=== PATIENT | male | born 1970 | race Caucasian/White ===

== ENCOUNTER 2019-05-27 04:52 | Emergency (ER) | payer BC, SELFPAY ==
[2019-05-27] VITALS (19 sets, daily range): BP systolic 101–207; BP diastolic 50–123; PULSE 42–83; RESP 13–23; TEMP 36.7; O2SAT 94–99
--- NOTE | 2019-05-27 04:57 | DI.CT_ITS ---
EXAM: CT THORAX ABD/PEL CTA CLINICAL HISTORY: back/chest pain, ?dissection. TECHNIQUE: The examination was carried out according to the usual protocol with intravenous contrast enhancement. COMPARISON: No exams were available for comparison FINDINGS: The pulmonary arteries are unremarkable. The aorta is normal. The major visceral branches are unrema rkable. There is no evidence of a pulmonary infiltrate, pneumothorax or pleural effusion. The heart is not enlarged. There is no pericardial effusion. There is no evidence of pulmonary emboli. The liver is unremarkable. The gallbladder is intact. No gallstones are seen. There is no evidence of biliary dilatation. The pancreas is unremarkable. The spleen, kidneys and adrenals are unremarkabl e. There is no evidence of bowel obstruction, the appendix is normal. The bladder is suboptimally d istended. No gross abnormality is apparent. The reproductive organs as visualized are unremarkable. There is no evidence of a hernia. Aside from minimal degenerative changes, the bony structures are u nremarkable. IMPRESSION: No evidence of an acute abnormality, specifically the aorta is intact with no aneurysm or evidence of dissection seen.
--- NOTE | 2019-05-27 04:58 | ED.GENADUL_ITS ---
Discharge Plan Disposition Patient Disposition: [facility] Condition: Critical Discharge Details Chief Complaint: Chest Pain Clinical Impression: ST elevation (STEMI) myocardial infarction Primary Care Provider: Edilberto Swain ED Provider: Mitchell Elliott Home Meds and New Rx's Prescriptions: No Action fluocinonide 60 GM ointment 60 gm Topical BID Qty: 1 RF: 4 Medical Decision Making 48 yo male who denies chronic medical problems though doesn't see a provider regularly, denies smoking or drug use and drinks occasionally, comes in with mid to upper back pain radiating to the chest that woke him up from sleep about an hour or so ago. HE arrives with diaphoresis otherwise HD stable. States he went to bed feeling well and had no recent fevers, chills, abdominal pain, vomit and has no prior history of heart disease. He has no reproducible chest or back pain on exam. Given his diaphoresis, with back pain radiating to the chest will obtain ecg, troponin and CTA to eval for possible dissection. HE denies ivdu and no fevers and pain started acutely and has no neuro deficits so doubt entities such as sea, cauda equina pt's ecg showing concerning st elevation in II, III, avf, and he still states his pain is pain in the upper to mid back that has some tearing component, and he is noted to be hypertensive. I feel dissection needs to be evlauated for given high clinical supicion, going to hold on antiplatelets, anticoagulation and thrombolytics at this time until CTA is done CTA on my read is negative. I ordered asa, plavix and heparin infusion as well as nitro infusion given his htn. He states he feels the same, still has diaphoresis. I spoke with [facility] [place] awaiting cardiology to call back. TNK ordered as well given negative for dissection. He had no contraindications to the lytics and BP at the time it was given was 160/90 Spoke with cardiology who agree with lytics and transfer to them as a stemi. EAMON is not flying so will go by ground. HIs BP has now dropped to 108/60 so nitro infusion stopped at this time Differential Diagnosis Differential Diagnosis: acs, dissection, kidney stone, pancreatitis Imaging Data Radiologic Study: Attestation: I personally reviewed and interpreted this imaging study as follows: Imaging: CT Scan Radiologist's impression: no acute findings Lab Data Lab results reviewed: Yes I reviewed the patient's lab results. ECG Data Attestation: I personally reviewed and interpreted this ECG (s) as follows: Prior ECG tracings: not available for review Interpretation: 1mm st elevation in II, III, aVF, rate of 65, sinus rhythm, pr 190 2nd ekg shows sinus rhythm, rate of 85, pr 222, qtc 428, increased st elevation in inferior leads with reciprocal st depressions in aVL HPI General Mode of arrival: ambulatory . Date/Time Provider Initiated Documentation: 05/27/19 04:53 . Limitations to Documentation: no limitations . Information obtained by: patient . History of Present Illness 48 year old M presents to the emergency department with the chief complaint of back pain, described as moderate, with intensity rated at 5. Quality is described as stabbing and aching, and is localized to the back. Patient reports radiation to (chest). Patient started experiencing this hour(s) (1) and it has been constant. No relieving factors improve symptom(s), No exacerbating factors reported . Patient did receive the following treatments prior to arrival, none Related Data Home Medications Medication Instructions Recorded Confirmed fluocinonide 60 gm TOPICAL BID #1 tube 07/23/16 05/27/19 Allergies Allergy/AdvReac Type Severity Reaction Status Date / Time No Known Allergies Allergy Unverified 05/27/19 04:57 General Stated Complaint: Chest Pain THEODORE: 2 Review of Systems Review of Systems ROS Unobtainable: All systems reviewed & are unremarkable except as noted in HPI and below Constitutional Constitutional: Denies chills, Denies fever(s) and Denies weakness Cardiovascular Cardiovascular: Denies chest pain and Denies dyspnea Respiratory Respiratory: Denies cough and Denies dyspnea Gastrointestinal Gastrointestinal: Denies abdominal pain, Denies nausea and Denies vomiting Musculoskeletal Musculoskeletal: Denies joint swelling Neurologic Neurologic: Denies weakness PFSH Family History Mother No problems noted. Father No problems noted. Sister No problems noted. Brother No problems noted. Grandfather Neoplasm Grandfather Stroke Grandmother No problems noted. Grandmother No problems noted. Social History Smoking/Tobacco Use Status: Never Alcohol Intake: current Alcohol Intake frequency: holidays/special occasions only Drug use: Never Substance use type: does not use Do you feel safe at home: Yes Do you feel safe in your relationship?: Yes Exam Const General: diaphoretic Orientation: alert HENMT Head: normal to inspection Ears: external ears normal General nose exam: external nose normal Mouth: moist mucous membranes Eyes General: appearance normal, both eyes and all related structures Neck Neck: normal visual inspection Resp Effort & Inspection: normal respiratory effort and able to speak in complete sentences Cardio Rate: regular rate Back/Spine/Pelvis Back: no CVA tenderness, No erythema and No warmth Skin General skin exam: no rashes or lesions noted Neuro General: alert and oriented x3 Extrem General: normal to inspection Psych Mental Status: mental status grossly normal Course Vital Signs Vital signs: Vital Signs Temperature 36.7 C 05/27/19 04:55 Pulse 70 05/27/19 04:55 Respiratory Rate 18 05/27/19 04:55 Pulse Oximetry 97 05/27/19 04:55 Temperature 36.7 C 05/27/19 04:55 Temperature Source Skin 05/27/19 04:55 Pulse 70 05/27/19 04:55 Respiratory Rate 18 05/27/19 04:55 Blood Pressure Position Sitting 05/27/19 04:55 Pulse Oximetry 97 05/27/19 04:55 Oxygen Delivery Method Room Air 05/27/19 04:55 Oxygen Flow Rate 0 05/27/19 04:55 Pain Level 6 05/27/19 04:55 Critical Care Time Critical Care Time Critical Care Time: Yes Total Critical Care Time: 60 (minutes) Attestation: time spent reviewing labs, administering thrombolytics, frequent reassessments in a patient with STEMI and potential to deteriorate at any time
[2019-05-27 05:19] LABS: Abs Immature Grans 0.02 k/cumm (0.0-0.09); Absolute Basophil Count 0.01 k/cumm (0.0-0.2); Absolute Eosinophil Count 0.14 k/cumm (0.0-0.7); Absolute Lymphocyte Count 2.54 k/cumm (1.2-3.4); Absolute Monocyte Count 0.56 k/cumm (0.11-0.7); Absolute Neutrophil Count 3.15 k/cumm (1.2-6.7); Basophils % 0.2; Eosinophils % 2.2; HCT 45.8 % (40.0-50.0); HGB 15.7 g/dL (13.5-17.5); Immature Grans % 0.3; Lymphocytes % 39.6; Mean Corp. HGB Concentration 34.3 g/dL (32.0-36.0); Mean Corpuscular Hemoglobin 29.6 pg (27.0-33.0); Mean Corpuscular Volume 86.3 fL (80-95); Mean Platelet Volume 8.9 fL (8.0-11.0); Monocytes % 8.7; Platelet Count 251 x1000/uL (130-400); RBC 5.31 m/cumm (4.50-6.00); RBC Distribution Width 12.8 % (11.8-14.1); White Blood Cell Count 6.42 k/cumm (4.4-10.8)
[2019-05-27] MEDS: Omnipaque 350 MG/ML 100 ML BTL IJ (05:25)
[2019-05-27] MEDS: Clopidogrel 300 MG TAB PO (05:31)
[2019-05-27] MEDS: Aspirin 81 MG CHEW 324 MG CH (05:31)
[2019-05-27 05:41] LABS: Lipase 153 U/L (73-393); Magnesium 2.1 mg/dL (1.8-2.4)
--- NOTE | 2019-05-27 05:41 | DI.VRAD_ITS ---
PROCEDURE INFORMATION: Exam: CT Angiography Chest With Contrast Exam date and time: 05/27/2019 4:58 AM Clinical history: 48 years old, male; Type not specified; Other: Chest/back; Patient HX: Back/chest pain; PT diaphoretic; PT states pain began about 1 hr prior to er; Additional info: R/O dissection TECHNIQUE: Imaging protocol: Computed tomographic angiography of the chest with intravenous contrast. 3D rendering: MIP reconstructed images were created and reviewed. COMPARISON: No relevant prior studies available. FINDINGS: Pulmonary arteries: Unremarkable. No evidence of pulmonary emboli. Aorta: Unremarkable. No aortic aneurysm. No aortic dissection. Lungs: Unremarkable. No consolidation. No masses. No suspicious nodules. Pleural space: Unremarkable. No pneumothorax. No pleural effusion. Heart: Unremarkable. No pericardial effusion. No obvious heart strain. Lymph nodes: Unremarkable. No enlarged lymph nodes. Bones/joints: Unremarkable. No acute fracture. Soft tissues: Unremarkable. IMPRESSION: No acute findings. PROCEDURE INFORMATION: Exam: CT Angiography Abdomen and Pelvis With Contrast Exam date and time: 05/27/2019 4:58 AM Clinical history: 48 years old, male; Type not specified; Other: Chest/back; Patient HX: Back/chest pain; PT diaphoretic; PT states pain began about 1 hr prior to er; Additional info: R/O dissection TECHNIQUE: Imaging protocol: Computed tomographic angiography of the abdomen and pelvis with intravenous contrast material. 3D rendering: MIP reconstructed images were created and reviewed. COMPARISON: No relevant prior studies available. FINDINGS: VASCULATURE: Aorta: No aortic aneurysm. No aortic dissection. Celiac trunk and mesenteric arteries: No occlusion or significant stenosis. Renal arteries: No occlusion or significant stenosis. Right iliac arteries: No occlusion or significant stenosis. Left iliac arteries: No occlusion or significant stenosis. ABDOMEN: Liver: No mass. Gallbladder and bile ducts: Unremarkable. No calcified stones. No ductal dilation. Pancreas: Unremarkable. No mass. No ductal dilation. Spleen: Unremarkable. No splenomegaly. Adrenals: Unremarkable. No mass. Kidneys and ureters: Unremarkable. No solid mass. No hydronephrosis. Stomach and bowel: Unremarkable. No obstruction. No mucosal thickening. Appendix: No evidence of appendicitis. PELVIS: Bladder: Unremarkable. No mass. Reproductive: Unremarkable as visualized. ABDOMEN and PELVIS: Intraperitoneal space: Unremarkable. No free air. No significant fluid collection. Bones/joints: No acute fracture. No dislocation. Soft tissues: Unremarkable. Lymph nodes: Unremarkable. No enlarged lymph nodes. IMPRESSION: Unremarkable CTA abdomen pelvis. Dictated and Authenticated by: Ej Sánchez MD. Ordering:THUAN Medrano MD
[2019-05-27 05:43] LABS: BUN 21 mg/dL (7-18); Glucose 133 mg/dL (70-100); Troponin I < 0.05 ng/mL (0.00-0.06)
[2019-05-27 05:44] LABS: ALT 47 U/L (16-63); AST 25 U/L (15-37); Albumin 4.1 g/dL (3.4-5.0); Alkaline Phosphatase 57 U/L (46-116); Anion Gap 8.8 mmol/L (3-11); Bilirubin, Total 0.4 mg/dL (0.2-1.0); CO2 28.2 mmol/L (21.0-32.0); Chloride 105 mmol/L (98-107); Potassium 3.9 mmol/L (3.5-5.1); Sodium 142 mmol/L (136-145); Total Protein 7.6 g/dL (6.4-8.2)
[2019-05-27] MEDS: Ondansetron 4 MG/2 ML VIAL IVP (06:00)
[2019-05-27] MEDS: fentaNYL 100 MCG/2 ML VIAL IVP (06:01)
[2019-05-27] MEDS: Tenecteplase 50 MG KIT IVP (06:01)
[2019-05-27 06:02] LABS: PTT Activated 23.3 sec (21.0-31.4); Prothrombin Time 9.9 sec (9.3-11.0)
--- NOTE | 2019-05-27 06:36 | NUR.NOTE ---
05/27/19 0547 nitro drip stopped due to low bp see vital sign flow sheet 05/27/19 0624 nitro drip restarted at 5ml/hr per Dr Elliott Nursing Note:
[2019-05-27 06:38] LABS: Bilirubin Negative (Negative); Blood Trace-intact (Negative); Clarity Clear (Clear); Glucose Negative (Negative); Ketones Negative (Negative); Leukocyte Esterase Negative (Negative); Nitrite Negative (Negative); Urobilinogen 0.2 EU/dL (Up TO 0.2)
[2019-05-27 06:49] LABS: Bacteria Rare HPF (Negative); Crystals Negative HPF (Negative); Epithelial Cells Negative HPF (Negative); RBC 0-2 (0-2); WBC 0-2 HPF (0-5)
[2019-05-27 06:50] LABS: C & S Indicated? No; Casts Negative LPF (Negative); Mucus Trace (Negative)
== END 2019-05-27 06:44 | disposition short-term general hospital (02) ==
PROVIDERS: Emergency Provider Emergency Medicine; PCP Family Medicine
DX: I21.29 ST elevation (STEMI) myocardial infarction involving other sites (principal)
CPT/HCPCS: 36415; 74177; 80053; 83690; 93005; 96365; 96368; 96375; 99291; 81003; 81015; 83735; 84484; 85025; 85610; 85730; 93010; J2405; J3010; J3101; J3490

== ENCOUNTER 2019-07-04 11:39 | Outpatient (RCR) | payer BC, SELFPAY | END 2019-07-05 23:59 | disposition home or self-care (01) | LOC: CR 11:39 | PROVIDERS: Family Provider Family Medicine; PCP Family Medicine; Visit Provider Family Medicine | DX: I25.2 Old myocardial infarction (principal); Z95.5 Presence of coronary angioplasty implant and graft; Z51.89 Encounter for other specified aftercare | CPT/HCPCS: S9472 ==

== ENCOUNTER 2019-07-23 09:10 | Outpatient (CLI) | payer BC, SELFPAY | END 2019-07-23 09:30 | PROVIDERS: PCP Family Medicine; Visit Provider Internal Medicine Cardiovascular Disease | DX: I25.10 Atherosclerotic heart disease of native coronary artery without angina pectoris (principal) | CPT/HCPCS: 93005; 93010 ==

== ENCOUNTER 2019-08-01 11:39 | Outpatient (RCR) | payer BC, SELFPAY | END 2019-08-04 23:59 | disposition home or self-care (01) | LOC: CR 11:39 | PROVIDERS: Family Provider Family Medicine; PCP Family Medicine; Visit Provider Family Medicine | DX: I25.2 Old myocardial infarction (principal); Z95.5 Presence of coronary angioplasty implant and graft; Z51.89 Encounter for other specified aftercare | CPT/HCPCS: S9472 ==

== ENCOUNTER 2019-09-03 10:47 | Outpatient (RCR) | payer BC, SELFPAY | END 2019-09-04 23:59 | disposition home or self-care (01) | LOC: CR 10:47 | PROVIDERS: Family Provider Family Medicine; PCP Family Medicine; Visit Provider Family Medicine | DX: I25.2 Old myocardial infarction (principal); Z95.5 Presence of coronary angioplasty implant and graft; Z51.89 Encounter for other specified aftercare | CPT/HCPCS: S9472 ==

== ENCOUNTER 2019-09-12 08:00 | Outpatient (RCR) | payer BC, SELFPAY | END 2019-10-05 23:59 | disposition home or self-care (01) | LOC: CR 08:00 | PROVIDERS: Family Provider Family Medicine; PCP Family Medicine; Visit Provider Family Medicine | DX: I25.2 Old myocardial infarction (principal); Z95.5 Presence of coronary angioplasty implant and graft; Z51.89 Encounter for other specified aftercare | CPT/HCPCS: S9472 ==

== ENCOUNTER 2019-10-11 00:17 | Outpatient (CLI) | payer BC, SELFPAY ==
--- NOTE | 2019-10-11 08:44 | ETT_ITS ---
APPROVED REPORT Exam: Exercise Treadmill Patient Location: Out-Patient Room/Bed: Stress Nurse: Janny Kaur RN BMI: 33.46 Baseline Rhythm: Sinus Rhythm Indications: Evaluate for arrhythmia with maximum exertion, H/O STEMI, OLD MS. Medical History Medical History: CAD s/p MS, CAD s/p stent, HTN, Hyperlipidemia Cardiac Medications: Metoprolol, Lisinopril, Atrovastatin, Aspirin, Allergies: No known drug allergies Cardiac Risk Factors: HTN, Hyperlipidemia Previous Cardiac Procedures: Myocardial infarction, PCI Exercise History: Physically active Lung Sounds: Clear to auscultation Heart Sounds: Regular Stress Test Details Test: Exercise stress testing was performed using a Christian protocol. Rest Stress HR Resting HR Supine: 68 bpm Max Heart Rate (APMHR): 172 bpm Resting HR Standin bpm Target HR (85% APMHR): 146 bpm Max HR Achieved: 169 bpm % of APMHR: 98 HR response to stress: Normal HR response to stress BP Resting BP Supine: 122/80 mmHg Resting BP Standin/80 mmHg Max BP: 192/80 mmHg Recovery BP: 140/90 mmHg BP response to stress: Normal blood pressure response to stress. Comment: Blood pressure slow to return to pre-treadmill exercise baseline ECG Resting ECG: Sinus Rhythm Stress ECG: Sinus Tachycardia ST Change: For acute T waves noted in V1 through V5 Lead(s): V1, V2, V3, V4, V5 Stage: 4 Arrhythmia: None Recovery ECG: Sinus Rhythm Recovery ST Change: Normal Recovery Arrhythmia: None Clinical Reason for Termination: Fatigue Stress Symptoms: General Fatigue Exercise duration: 12 min01 sec Highest Stage Reached: Stage 4: 4.2 mph at 16% grade. Exercise capacity: 13.48 METs Functional Capacity: Above average capacity Scale: Active Angina Score: None Stress ECG Conclusion 1. Patient exercised for 12 minutes (13 METS). 2. Exercise was stopped due to fatigue. 3. His maximal heart rate was 169 (98% of maximal predicted heart rate) and maximal blood pressure wa s 192/80. 4. During maximal exercise the patient developed hyperacute T waves in the anterior leads. He had no significant symptomology. 5. EKG is concerning for possible ischemia especially given the patient's recent LAD stenting. Would suggest further work-up with a stress test involving imaging. Protocol Used: Christian Protocol Stress Test Summary STAGE Time (mins) Speed (mph) Grade (%) HR BP SYMPTOMS METS Supine 68 122/80 Standing 75 124/80 1 3 1.7 10 109 144/80 4.6 2 6 2.5 12 117 160/78 7 3 9 3.4 14 141 182/80 10.2 4 12 4.2 16 158 12.9 1 min recovery 115 192/80 3 min recovery 92 180/86 6 min recovery 85 162/90 9 min recovery 87 140/90 12 min recovery
== END 2019-10-11 00:37 ==
PROVIDERS: PCP Family Medicine; Visit Provider Internal Medicine Cardiovascular Disease
DX: I25.10 Atherosclerotic heart disease of native coronary artery without angina pectoris (principal); I25.2 Old myocardial infarction; R94.31 Abnormal electrocardiogram [ECG] [EKG]; Z95.5 Presence of coronary angioplasty implant and graft; I10 Essential (primary) hypertension; E78.5 Hyperlipidemia, unspecified
CPT/HCPCS: 93017

== ENCOUNTER 2020-08-22 02:32 | Outpatient (CLI) | payer BC, SELFPAY ==
[2020-08-25 12:09] LABS: COVID-19 RT-PCR Result NEGATIVE (Negative)
== END 2020-08-22 02:52 ==
PROVIDERS: PCP Nurse Practitioner; Visit Provider Nurse Practitioner
DX: Z20.828 Contact with and (suspected) exposure to other viral communicable diseases (principal)
CPT/HCPCS: U0003

== ENCOUNTER 2020-09-01 10:19 | Emergency (ER) | payer BC, SELFPAY ==
[2020-09-01] VITALS (49 sets, daily range): BP systolic 134–173; BP diastolic 85–104; PULSE 68–83; RESP 13–26; TEMP 36.6; O2SAT 93–99
--- NOTE | 2020-09-01 10:15 | RT.EKG_ITS ---
APPROVED REPORT Exam: Resting ECG Patient Location: E HR:82 bpm ECG Measurements Heart Rate 82 AXIS HI 182 P 68 QRSd 89 QRS -3 QT 366 T 26 QTc 428 Conclusion Sinus rhythm...normal P axis, V-rate 60- 99 Inferior infarct, old...Q >35mS, II III aVF sinus rhythm at 82, normal axis, inferior Q waves, no STEMI, nondiagnostic EKG
--- NOTE | 2020-09-01 10:21 | ED.GENADUL_ITS ---
Discharge Plan Disposition Patient Disposition: HOME Condition: Stable Discharge Details Clinical Impression: Chest pain Primary Care Provider: Karen Jameson ED Provider: Anahi Thomas Home Meds and New Rx's Prescriptions: Continued aspirin [Adult Aspirin Regimen] 81 mg tablet,delayed release (DR/EC) 81 mg PO DAILY RF: 0 atorvastatin 80 mg tablet 80 mg PO DAILY Qty: 90 RF: 4 lisinopril 5 mg tablet 5 mg PO DAILY Qty: 90 RF: 4 No Action metoprolol succinate 25 mg tablet extended release 24 hr 50 mg PO DAILY Qty: 90 RF: 3 nitroglycerin 0.6 mg tablet, sublingual 0.6 mg sublingual Q5M PRN (Reason: chest pain) Qty: 20 RF: 3 Discharge Instructions Instructions: Chest Pain (ED) Additional Instructions: Please return immediately to the emergency department if you develop any new or worsening symptoms, if your condition does not improve as expected, or if you become otherwise concerned. It is extremely important that you call soon as possible to make an appointment to be seen in follow-up for this visit by your primary care doctor. It is extremely important that you attend your scheduled appointment with your on laboratory scientist on 09/03, and also that you undergo a stress test as we discussed. Referrals: Karen Jameson NP [Primary Care Provider] - Ahsan Cool MD [MD CONSULTING PHYSICIAN] - Discharge Data Discharge Date/Time-TO BE ENTERED AT DEPARTURE: 09/01/20 14:57 Medical Decision Making Surinder Lamb is a 49-year-old man with a history of STEMI 2018, hypertension who presented to the emergency department with 3 to 4 days of chest discomfort without modifiers, not worse with exertion. On exam patient is very well and nontoxic-appearing. Concern for acute coronary syndrome, GERD, pulmonary embolism, other. Exam/history at this time is not consistent with sepsis, acute aortic pathology. Patient is low for pulmonary embolism, will send D-dimer. EKG shows Q waves, no STEMI, nondiagnostic. Plan for screening labs, chest x- ray, telemetry. If initial work-up negative, plan for repeat EKG and repeat troponin. Initial troponin negative, will repeat. Repeat troponin, repeat EKG okay. Patient reports that fullness in his chest is reduced but not entirely gone. He states that he feels well overall. Patient with heart score low at 3 with slightly suspicious history, moderate for his moderately history is used, however I feel that given that patient's discomfort is not exertional and he has exerted himself significantly since onset, his history is slightly suspicious at this time. I did discuss with patient that his history of STEMI is concerning, and admission for rule out with stress test would be reasonable at this time. Patient states that he would much prefer to go home, he understands the risks of going home, and understands the importance of outpatient follow-up with cardiology. Patient placed on list for cardiology follow-up. I had a lengthy d iscussion with Patient regarding return to emergency department precautions, home care, and importance of outpatient follow-up. Pt verbalizes understanding of the plan and is amenable. Patient discharged to home with clear plan for outpatient follow-up. All questions were answered. Disposition decision was made weighing the risks and benefits of hospitalization versus outpatient treatment, the risk for further decompensation, and the patient's wishes. Medical Records Medical records reviewed: Yes I reviewed the patient's medical records. Imaging Data Radiologic Study: Attestation: I personally reviewed and interpreted this imaging study as follows: Radiologist's impression: EXAM: XR PORTABLE CHEST AP CLINICAL HISTORY: chest pain. TECHNIQUE: 2D digital imaging was performed. COMPARISON: No exams were available for comparison FINDINGS: Heart size normal. Mediastinum is not widened. No infiltrates nor pleural effusions. No pneumothorax. No pulmonary edema. IMPRESSION: No acute pulmonary findings on this AP portable view of the chest. Lab Data Lab results reviewed: Yes I reviewed the patient's lab results. Labs: Laboratory Tests Range/Units 09/01/20 09/01/20 09/01/20 10:30 10:30 10:30 WBC (4.4-10.8) 10^3/uL 6.78 RBC (4.36-5.78) 10^6/uL 5.52 Hgb (13.5-17.5) g/dL 16.4 Hct (40.0-50.0) % 48.3 MCV (80-95) fL 87.5 MCH (27.0-33.0) pg 29.7 MCHC (32.0-36.0) % 34.0 RDW (11.8-14.1) % 11.9 Plt Count (130-400) 10^3/uL 240 MPV (8.0-11.0) fL 9.6 Immature Gran % 0.1 Neutrophils % 59.1 Lymphocytes % 30.8 Monocytes % 7.5 Eosinophils % 2.2 Basophils % 0.3 Nucleated RBC % % 0 Absolute Neutrophils (1.2-6.7) 10^3/uL 4.00 Absolute Lymphocytes (1.2-3.4) 10^3/uL 2.09 Absolute Monocytes (0.1-0.8) 10^3/uL 0.51 Absolute Eosinophils (0.0-0.7) 10^3/uL 0.15 Absolute Basophils (0.0-0.2) 10^3/uL 0.02 D-Dimer (<500) ng/mlFEU 193 Sodium (136-145) mmol/L 137 Potassium (3.5-5.1) mmol/L 4.4 Chloride (98-107) mmol/L 101 Carbon Dioxide (21.0-32.0) mmol/L 30.3 Anion Gap (3-11) mmol/L 5.7 BUN (7-18) mg/dL 15 Creatinine (0.70-1.30) mg/dL 0.96 Estimated GFR/1.73 m2 (mL/min/1.73m2) >= 60.00 Glucose (74-106) mg/dL 101 Calcium (8.5-10.1) mg/dL 9.5 Magnesium (1.8-2.4) mg/dL 2.1 Total Bilirubin (0.2-1.0) mg/dL 0.5 AST (15-37) U/L 29 ALT (16-63) U/L 44 Alkaline Phosphatase (46-116) U/L 68 Troponin I (<0.06) ng/mL < 0.05 NT-Pro-B Natriuret Pep (<300) pg/mL 27 Total Protein (6.4-8.2) g/dL 7.8 Albumin (3.4-5.0) g/dL 4.2 Range/Units 09/01/20 13:30 WBC (4.4-10.8) 10^3/uL RBC (4.36-5.78) 10^6/uL Hgb (13.5-17.5) g/dL Hct (40.0-50.0) % MCV (80-95) fL MCH (27.0-33.0) pg MCHC (32.0-36.0) % RDW (11.8-14.1) % Plt Count (130-400) 10^3/uL MPV (8.0-11.0) fL Immature Gran % Neutrophils % Lymphocytes % Monocytes % Eosinophils % Basophils % Nucleated RBC % % Absolute Neutrophils (1.2-6.7) 10^3/uL Absolute Lymphocytes (1.2-3.4) 10^3/uL Absolute Monocytes (0.1-0.8) 10^3/uL Absolute Eosinophils (0.0-0.7) 10^3/uL Absolute Basophils (0.0-0.2) 10^3/uL D-Dimer (<500) ng/mlFEU Sodium (136-145) mmol/L Potassium (3.5-5.1) mmol/L Chloride (98-107) mmol/L Carbon Dioxide (21.0-32.0) mmol/L Anion Gap (3-11) mmol/L BUN (7-18) mg/dL Creatinine (0.70-1.30) mg/dL Estimated GFR/1.73 m2 (mL/min/1.73m2) Glucose (74-106) mg/dL Calcium (8.5-10.1) mg/dL Magnesium (1.8-2.4) mg/dL Total Bilirubin (0.2-1.0) mg/dL AST (15-37) U/L ALT (16-63) U/L Alkaline Phosphatase (46-116) U/L Troponin I (<0.06) ng/mL < 0.05 NT-Pro-B Natriuret Pep (<300) pg/mL Total Protein (6.4-8.2) g/dL Albumin (3.4-5.0) g/dL ECG Data Attestation: I personally reviewed and interpreted this ECG (s) as follows: Interpretation: EKG shows sinus rhythm at 82, normal axis, inferior Q waves, no STEMI, nondiagnostic EKG Repeat EKG shows sinus rhythm at 71, normal axis, inferior Q waves, no STEMI, no major change from prior, nondiagnostic EKG HPI General Mode of arrival: ambulatory . Date/Time Provider Initiated Documentation: 09/01/20 10:21 . Limitations to Documentation: no limitations . Information obtained by: patient, RN notes reviewed and old records reviewed . HPI Narrative: Surinder Lamb is a 49 y/o man with history of STEMI 2019 with stent placed, hypertension presenting to emergency department with chest discomfort. Patient reports that over the past 3 to 4 days he has had a mild pressure-like sensation in his chest that he describes as fullness. Patient reports that this seems to wax and wane but has generally been present without resolution throughout the day since onset. Patient reports that sensation is unchanged with physical exertion (contrary to triage note). Patient reports sensation is unchanged by rest. Unchanged by eating. He reports mild shortness of breath with exertion that is typical for him, denies of the shortness of breath. He denies any other pain, vomiting, diarrhea, numbness, weakness, rash, cough, fever. Patient states that he has been able to go about his usual activities. Related Data Home Medications Medication Instructions Recorded Confirmed aspirin 81 mg tablet,delayed 81 mg PO DAILY 06/26/19 09/12/20 release atorvastatin 80 mg tablet 80 mg PO DAILY #90 tab 11/20/19 09/12/20 lisinopril 5 mg tablet 5 mg PO DAILY #90 tab 11/20/19 09/12/20 metoprolol succinate 25 mg 50 mg PO DAILY #90 tab 09/12/20 09/12/20 tablet,extended release 24 hr nitroglycerin 0.6 mg sublingual 0.6 mg SUBLINGUAL Q5M PRN #20 tab 09/12/20 09/12/20 tablet Previous Rx's Medication Instructions Recorded atorvastatin 80 mg tablet 80 mg PO DAILY #90 tab 11/20/19 lisinopril 5 mg tablet 5 mg PO DAILY #90 tab 11/20/19 metoprolol succinate 25 mg 50 mg PO DAILY #90 tab 09/12/20 tablet,extended release 24 hr nitroglycerin 0.6 mg sublingual 0.6 mg SUBLINGUAL Q5M PRN #20 tab 09/12/20 tablet Allergies Allergy/AdvReac Type Severity Reaction Status Date / Time No Known Allergies Allergy Unverified 09/12/20 08:58 General THEODORE: 2 Review of Systems Narrative: Constitutional: denies fevers Eyes: denies eye pain ENT: denies ear pain, dental pain, sore throat Cardiovascular: denies edema, reports chest pain Respiratory: denies SOB, cough GI: denies abdominal pain, vomiting, diarrhea : denies flank pain MSK: denies back pain, neck pain, arthralgias, myalgias Skin: denies rash Neuro: denies headaches, numbness, weakness [facility] Medical History CAD (coronary artery disease) Essential hypertension ST elevation myocardial infarction (STEMI) of inferior wall (~05/2019) Surgical History H/O heart artery stent (~05/2019) PCI to distal RCA, mid LAD Family History Grandfather Cancer Grandfather Stroke Son No problems noted. Social History Smoking/Tobacco Use Status: Never Smoking risk assessment performed?: Yes Alcohol Intake: current Alcohol Intake frequency: 0-2 drinks per day Alcohol type: beer Drug use: Never Substance use type: does not use Caregiver/Support person: No Household members: spouse and children Housing: house Communication Needs: None Do you need help understanding health information?: Never Pets and animals: Yes Pets and animals: cat(s) Sexually active: Yes Do you think of yourself as: straight/heterosexual Current gender identity: male What is your relationship status?: How often do you talk on the phone with friends or family?: three or more times per week How often do you get together with friends or relatives?: once per week How often do you attend mosque or congregational services?: decline to answer Do you belong to any clubs or organized social groups?: yes Panel score (0-1 are the most socially isolated patients): 3 What type of physical activity do you participate in: bicycling Duration: 30-45 minutes/day Frequency: 3-4 times per week Tanisha/Caodaism: None Special tanisha needs: No Seatbelt use: always Helmet use: Yes Helmet use: always Do you feel safe at home: Yes Do you feel safe in your relationship?: Yes Exam Narrative Exam Narrative: Constitutional: well and [id number], pleasant, conversing normally HENT: head atraumatic/normocephalic/normal inspection, mucous membranes moist Eyes: conjunctiva normal, sclera normal, pupils 3mm b/l Neck: no stridor, normal ROM, trachea midline Chest: normal inspection Resp: normal work of breathing, LCTAB Cardio: normal rate, normal rhythm, no murmur appreciated GI: abdomen soft, non-tender, non-distended Back: normal inspection, no rash Skin: warm, dry, normal color, no rash Neuro: alert, not altered, grossly non-focal, normal tone Ext: no edema, no posterior calf tenderness to palpation Psych: normal mood, normal affect, normal behavior
--- NOTE | 2020-09-01 10:45 | DI.RAD_ITS ---
EXAM: XR PORTABLE CHEST AP CLINICAL HISTORY: chest pain. TECHNIQUE: 2D digital imaging was performed. COMPARISON: No exams were available for comparison FINDINGS: Heart size normal. Mediastinum is not widened. No infiltrates nor pleural effusions. No pneumothor ax. No pulmonary edema. IMPRESSION: No acute pulmonary findings on this AP portable view of the chest. DATA REPOSITORY: RADIATION DOSE DELIVERED:
[2020-09-01 11:01] LABS: Abs Immature Grans 0.01 10^3/uL (0.0-0.06); Absolute Basophil Count 0.02 10^3/uL (0.0-0.2); Absolute Eosinophil Count 0.15 10^3/uL (0.0-0.7); Absolute Lymphocyte Count 2.09 10^3/uL (1.2-3.4); Absolute Monocyte Count 0.51 10^3/uL (0.1-0.8); Basophils % 0.3; Eosinophils % 2.2; HCT 48.3 % (40.0-50.0); HGB 16.4 g/dL (13.5-17.5); Immature Grans % 0.1; Lymphocytes % 30.8; MCH 29.7 pg (27.0-33.0); MCV 87.5 fL (80-95); MPV 9.6 fL (8.0-11.0); Monocytes % 7.5; Neutrophils % 59.1; Nucleated RBC 0 %; Platelet Count 240 10^3/uL (130-400); RBC 5.52 10^6/uL (4.36-5.78); RDW 11.9 % (11.8-14.1); RDW-SD 38.3 fL; WBC 6.78 10^3/uL (4.4-10.8)
[2020-09-01 11:23] LABS: ALT 44 U/L (16-63); AST 29 U/L (15-37); Albumin 4.2 g/dL (3.4-5.0); Alkaline Phosphatase 68 U/L (46-116); Anion Gap 5.7 mmol/L (3-11); BUN 15 mg/dL (7-18); Bilirubin, Total 0.5 mg/dL (0.2-1.0); CO2 30.3 mmol/L (21.0-32.0); CREATININE 0.96 mg/dL (0.70-1.30); Calcium 9.5 mg/dL (8.5-10.1); Chloride 101 mmol/L (98-107); Glucose 101 mg/dL (74-106); Magnesium 2.1 mg/dL (1.8-2.4); NT-proBNP 27 pg/mL (<300); Potassium 4.4 mmol/L (3.5-5.1); Sodium 137 mmol/L (136-145); Total Protein 7.8 g/dL (6.4-8.2); Troponin I < 0.05 ng/mL (<0.06)
[2020-09-01 11:36] LABS: D-Dimer 193 ng/mlFEU (<500)
--- NOTE | 2020-09-01 13:15 | RT.EKG_ITS ---
APPROVED REPORT Exam: Resting ECG Patient Location: E HR:71 bpm ECG Measurements Heart Rate 71 AXIS WI 192 P 50 QRSd 88 QRS -16 QT 392 T 17 QTc 426 Conclusion Sinus rhythm...normal P axis, V-rate 60- 99 Inferior infarct, old...Q >35mS, II III aVF sinus rhythm at 71, normal axis, inferior Q waves, no STEMI, no major change from prior, nondiagnosti c EKG
[2020-09-01 13:55] LABS: Troponin I < 0.05 ng/mL (<0.06)
== END 2020-09-01 14:57 | disposition home or self-care (01) ==
PROVIDERS: Emergency Provider Student in an Organized Health Care Education/Training Program; PCP Nurse Practitioner
DX: R07.89 Other chest pain (principal); I25.10 Atherosclerotic heart disease of native coronary artery without angina pectoris; I10 Essential (primary) hypertension; I25.2 Old myocardial infarction; Z95.5 Presence of coronary angioplasty implant and graft
CPT/HCPCS: 36415; 80053; 93005; 99285; 71045; 83735; 83880; 84484; 85025; 85379; 93010

== ENCOUNTER 2020-12-31 03:23 | Outpatient (CLI) | payer BC, SELFPAY ==
[2020-12-31 10:15] LABS: Source Nasal/Nares
[2020-12-31 14:18] LABS: COVID-19 PCR Negative (Negative)
== END 2020-12-31 03:24 | disposition home or self-care (01) ==
LOC: LBO 03:23
PROVIDERS: PCP Nurse Practitioner; Visit Provider Surgery
DX: Z20.822 Contact with and (suspected) exposure to COVID-19 (principal); Z01.818 Encounter for other preprocedural examination
CPT/HCPCS: 87635

== ENCOUNTER 2021-01-02 10:00 | Day surgery (SDC) | payer BC, SELFPAY ==
[2021-01-02 10:15] VITALS: BP 165/100; PULSE 81; RESP 18; TEMP 36.4; O2SAT 97
--- NOTE | 2021-01-02 10:24 | W.ANESPRE ---
General Info Date of Service Date Performed: 01/02/21 Height: 5 ft 11 in Weight: 116.3 kg Body Mass Index (BMI): 35.7 Surgical Procedure: Operation Date: 01/02/21 10:35 Proposed Procedures Side Surgeon jose d Hancock, DO Meds Allergies and Home Medications Allergies Allergy/AdvReac Type Severity Reaction Status Date / Time No Known Allergies Allergy Unverified 01/02/21 10:13 Home Medication Medication Instructions Recorded aspirin 81 mg tablet,delayed 81 mg PO DAILY 06/26/19 release atorvastatin 80 mg tablet 80 mg PO DAILY #90 tab 11/20/19 lisinopril 5 mg tablet 5 mg PO DAILY #90 tab 11/20/19 metoprolol succinate 25 mg 50 mg PO DAILY #90 tab 09/12/20 tablet,extended release 24 hr nitroglycerin 0.6 mg sublingual 0.6 mg SUBLINGUAL Q5M PRN #20 tab 09/12/20 tablet bisacodyl 5 mg tablet,delayed 5 mg PO ONCE #4 tab 12/18/20 release polyethylene glycol 3350 17 238 g PO ONCE #238 g 12/18/20 gram/dose oral powder Current Visit Medications: Current Medications Generic Name Dose Route Start Last Admin Trade Name Freq PRN Reason Stop Dose Admin Ringer's Solution 1,000 mls @ 80 mls/hr 01/02/21 06:00 IV 01/31/21 23:59 INFUSION HARJIT IV Miscellaneous Supplies 1 each 01/02/21 06:00 Iv Access IV 01/31/21 23:59 DIRECTED HARJIT Sodium Chloride 0 ml 01/02/21 06:00 Normal Saline Flush 10 Ml Syr IV 01/31/21 23:59 PRN PRN Sodium Chloride 0 ml 01/02/21 06:00 Normal Saline 10 Ml Vial IJ 01/31/21 23:59 DIRECTED PRN Sterile Water 0 ml 01/02/21 06:00 Water,Injection,Sterile 10 Ml Vial IJ 01/31/21 23:59 DIRECTED PRN PFSH Active Problems Active Problems: Problem Status Onset Code Psoriasis 09/12/15 L40.9 CAD (coronary artery disease) I25.10 Essential hypertension I10 History of ST elevation myocardial infarction (STEMI) I25.2 Increased body mass index R63.8 Medical History Medical History CAD (coronary artery disease) Essential hypertension ST elevation myocardial infarction (STEMI) of inferior wall (~05/2019) Surgical History Surgical History H/O heart artery stent (~05/2019) PCI to distal RCA, mid LAD Tobacco Smoking/Tobacco Use Status: Never Passive smoking exposure: Yes Alcohol Alcohol Intake: current Alcohol intake frequency: 0-2 drinks per day Alcohol type: beer Substance Use Substance use: Never Substance use type: does not use Vital Signs and Lab Results Vital Signs Most Recent Vital Signs in EMR: Most Recent Vital Signs Temp Pulse Resp BP Pulse Ox 36.4 C L 81 18 165/100 H 97 01/02/21 10:15 01/02/21 10:15 01/02/21 10:15 01/02/21 10:15 01/02/21 10:15 Lab Results Blood Type / Crossmatch: No Data to Display Complete Blood Count: White Blood Count 6.78 10^3/uL (4.4-10.8) 09/01/20 10:30 09/01/20 Red Blood Count 5.52 10^6/uL (4.36-5.78) 09/01/20 10:30 09/01/20 Hemoglobin 16.4 g/dL (13.5-17.5) 09/01/20 10:30 09/01/20 Hematocrit 48.3 % (40.0-50.0) 09/01/20 10:30 09/01/20 Platelet Count 240 10^3/uL (130-400) 09/01/20 10:30 09/01/20 Complete Metabolic Panel: Sodium Level 137 mmol/L (136-145) 09/01/20 10:30 09/01/20 Potassium Level 4.4 mmol/L (3.5-5.1) 09/01/20 10:30 09/01/20 Chloride Level 101 mmol/L (98-107) 09/01/20 10:30 09/01/20 Carbon Dioxide Level 30.3 mmol/L (21.0-32.0) 09/01/20 10:30 09/01/20 Blood Urea Nitrogen 15 mg/dL (7-18) 09/01/20 10:30 09/01/20 Creatinine 0.96 mg/dL (0.70-1.30) 09/01/20 10:30 09/01/20 Magnesium Level 2.1 mg/dL (1.8-2.4) 09/01/20 10:30 09/01/20 Calcium Level 9.5 mg/dL (8.5-10.1) 09/01/20 10:30 09/01/20 Albumin 4.2 g/dL (3.4-5.0) 09/01/20 10:30 09/01/20 Glucose Level 101 mg/dL (74-106) 09/01/20 10:30 09/01/20 Liver Function Panel: Alanine Aminotransferase (ALT/SGPT) 44 U/L (16-63) 09/01/20 10:30 09/01/20 Aspartate Amino Transf (AST/SGOT) 29 U/L (15-37) 09/01/20 10:30 09/01/20 Coagulation Panel: INR International Normalized Ratio 1.0 (0.9-1.1) 05/27/19 05:05 05/27/19 Prothrombin Time 9.9 sec (9.3-11.0) 05/27/19 05:05 05/27/19 Activated Partial Thromboplast Time 23.3 sec (21.0-31.4) 05/27/19 05:05 05/27/19 D-Dimer 193 ng/mlFEU (<500) 09/01/20 10:30 09/01/20 Cardiac Panel: Troponin I < 0.05 ng/mL (<0.06) 09/01/20 13:30 09/01/20 GQ-Oyb-F-Type Natriuretic Peptide 27 pg/mL (<300) 09/01/20 10:30 09/01/20 Arterial Blood Gas: No Data to Display Venous Blood Gas: No Data to Display Pancreas Panel: Lipase 153 U/L (73-393) 05/27/19 05:05 05/27/19 Thyroid Panel: No Data to Display Infectious Disease: Coronavirus (COVID-19)(PCR) Negative (Negative) 12/31/20 08:31 12/31/20 Coronavirus 2019 Source Nasal/nares 12/31/20 08:31 12/31/20 Blood Cultures: No Data to Display Toxicology Panel: No Data to Display Imaging and Studies Imaging and Studies EKG Summary:: 09/01/20 sinus rhythm at 71, normal axis, inferior Q waves, no STEMI, no major change from prior, nondiagnostic EKG Stress Test Summary:: 10/29/19 stress ECHO: baseline with normal systolic function LVEF 65%. 14 METS, max HR 162/94% predicted. no ST changes on EKG. no echo evidence of ischemia at this level of stress. 10/11/19 Stress ECG Conclusion 1. Patient exercised for 12 minutes (13 METS). 2. Exercise was stopped due to fatigue. 3. His maximal heart rate was 169 (98% of maximal predicted heart rate) and maximal blood pressure was 192/80. 4. During maximal exercise the patient developed hyperacute T waves in the anterior leads. He had no significant symptomology. 5. EKG is concerning for possible ischemia especially given the patient's recent LAD stenting. Would suggest further work-up with a stress test involving imaging. Anesthesia Assessment and Plan Anesthesia History Personal History: No History of General Anesthesia Family History: No Family History of Anesthesia Complications Exercise Tolerance Exercise Tolerance: Metabolic Equivalents>4 Pertinent Negatives Pertinent Negatives: No Symptoms of GERD, No Major Cardiovascular Symptoms or Complaints, No Major Pulmonary Symptoms or Complaints and No History of CVA/TIA Cardiac & Pulmonary Exam Cardiac Exam: Normal S1/S2 Heart Sounds Pulmonary Exam: Clear Bilateral Breath Sounds Airway Exam Known Difficult Airway: Yes Mallampati Class: 2 Mouth Opening: Normal (> 3cm) Thyromental Distance: Greater than 3 cm Neck Range of Motion: Full ROM Neck Circumference: Normal Teeth Condition: Normal Dentition ASA Classification ASA Score: ASA 2 ASA Emergency: No NPO Status NPO Status: NPO Clears >2 hours, Solids >8 hours Anesthesia Plan Anesthesia Technique: General Anesthesia Airway Planned: Natural Airway Monitors Used: Standard Monitors
[2021-01-02] MEDS: Lactated Ringers 1,000 ML 80 ML IV (10:27)
[2021-01-02 11:27] VITALS: BMI 35.7
--- NOTE | 2021-01-02 11:55 | BOWEL_PTH ---
PATIENT: Surinder Lamb LOC: [facility] U#:[id number] AGE/SX: 50/M ROOM: RE01/02/[address]: Mis Hancock : 1970 BED: DIS: 01/02/2021 SPEC #: [id number] RECD: 01/02/21 13:07 STATUS: [facility] #: [id number] KAUSHIK: 01/02/21 11:[address]: Mis Hancock DEPT: Surgical Specimen RECD BY: Maria Antonia Barrera ENTERED: 01/02/21 13:08 SP TYPE: Bowel OTHR DR: Karen Jameson, PhD [employer] Tissues: 1 - BIOPSY BOWEL Procedures: GROSS AND MICRO LEVEL 4 Comments: [id number]
--- NOTE | 2021-01-02 12:12 | W.PM.DSUDISC ---
Discharge Plan Disposition Patient Disposition: HOME Condition: Good Discharge Details Reason For Visit: colon scope Attending Provider: Mis Hancock Primary Care Provider: Karen Jameson Home Meds and New Rx's Prescriptions: Continued aspirin [Adult Aspirin Regimen] 81 mg tablet,delayed release (DR/EC) 81 mg PO DAILY RF: 0 metoprolol succinate 25 mg tablet extended release 24 hr 50 mg PO DAILY Qty: 90 RF: 3 nitroglycerin 0.6 mg tablet, sublingual 0.6 mg sublingual Q5M PRN (Reason: chest pain) Qty: 20 RF: 3 atorvastatin 80 mg tablet 80 mg PO DAILY Qty: 90 RF: 4 lisinopril 5 mg tablet 5 mg PO DAILY Qty: 90 RF: 4 Discontinued bisacodyl [Dulcolax (bisacodyl)] 5 mg tablet,delayed release (DR/EC) 5 mg PO ONCE Qty: 4 RF: 0 polyethylene glycol 3350 17 gram/dose powder 238 g PO ONCE Qty: 238 RF: 0 Discharge Instructions Additional Instructions: DSU Colonoscopy Post-Op Instructions Instructions for Everyone who is given Anesthesia: For your safety, please do the following for the next twenty-four (24) hours: *Do Not operate a motor vehicle (car, truck, motorcycle, etc.) *Do Not drink alcoholic beverages or use any recreational drugs for the first 24 hours or while taking pain medications. The medications in your body may have a reaction that can be dangerous. *Do Not make any important decisions or sign any important papers. Findings: x1 small polyp Follow up: My office will send you a letter with the results of polyp in approximately 3 weeks and when we want you to repeat your colonoscopy. 1. No lifting over 20 pounds or strenuous activity for the first 24 hours after your procedure. After 24 hours there are no restrictions on your activity but you may feel fatigued for a few days. 2. After you arrive home you may have a light meal and return to your normal diet as you can tolerate it without feeling sick to your stomach. 3. You may have a bloated, gaseous feeling in your belly (abdomen) after a colonoscopy. Passing gas and belching will help. Walking or lying down on your left side with your knees flexed may relieve the discomfort. Call the office at [phone] (Office) or [phone] (Hospital) right away if you notice any of the following: a.Vomiting of blood or ?coffee ground stools?. b.Rectal bleeding 1Tbsp, blood clots or continuous bleeding. c.Severe belly (abdominal) pain. d.A hard distended belly (abdomen) and an inability to pass gas. 4. Please don?t expect to have a normal BM (bowel movement) for 2-3 days after your procedure. 5. If there are questions regarding the findings of your procedure, please contact your doctor 6. If you are unable to contact your doctor with a problem, contact the hospital at [phone]. 7. Continue all your regular medications unless directed otherwise. I understand the above instructions and have no questions. Signature of Patient or Adult Escort Name of Responsible Adult Escort Signature of Nurse Date/Time Activity:: see above Diet:: see above Discharge Orders Discharge Orders: Discharge Order (Routine); Ordered 01/02/21 Ordered By: Mis Hancock DS: Diagnosis Discharge Diagnosis (1) Adenomatous colon polyp: Status: Acute
[2021-01-02 12:13] VITALS: BP 120/73; PULSE 69; RESP 16; TEMP 36.9; O2SAT 94
--- NOTE | 2021-01-02 12:15 | W.ANESPOSTOP ---
Postoperative Evaluation Date, Time and Location Date Performed: 01/02/21 Time Performed: 12:15 Patient Location: Day Surgery Unit Vital Signs Most Recent Imported Vital Signs: Most Recent Vital Signs Temp Pulse Resp BP Pulse Ox 36.4 C L 81 18 165/100 H 97 01/02/21 10:15 01/02/21 10:15 01/02/21 10:15 01/02/21 10:15 01/02/21 10:15 Most Recent Manually Entered Vital Signs: Adult Blood Pressure: 120/73 Heart Rate: 78 Respirations: 12 Oxygen Saturation (%): 95 Temperature (C): 36.4 C Pain Score (0-10 Scale): 0 Assessment Mental Status: Awake (Alert & Oriented to Patient Baseline) Airway and Respiratory Function: Patent airway with normal (patient baseline) respiratory exam Cardiovascular Function: Hemodynamically Stable Hydration Status: Adequately Hydrated Nausea & Vomiting: No Nausea or Vomiting Pain: Pt. Denies Any Pain Peripheral Nerve Block: Patient did not receive a nerve block
[2021-01-02 12:16] VITALS: BP 120/73; PULSE 78; RESP 12; TEMPC 36.4; O2SAT 95
--- NOTE | 2021-01-02 12:20 | COLE_ITS ---
Date of service: 01/02/21 Time of Service: 12:20 Colonoscopy Report Date of procedure: 01/02/21 Pre-op diagnosis general: screening Post-op diagnosis procedure note: other (polyp) Procedure: Polypectomy x1 with a cold forcep Surgeon: Mis Hancock Anesthesia Type: General:No Airway Estimated blood loss (mL): 0 Pathology: other Complications: None Disposition: same day Prep: Miralax/Dulcolax Retraction Time: 9 mins Procedure Description: After informed consent was obtained the patient was taken to the procedure room and placed in a left decubitous position. Monitors were applied and a time out was done. The patients name, date of , procedure, allergies to medications and metal in their body was reviewed. The patient was then sedated. Once sedated and comfortable a rectal exam was done. External exam was normal. Internal exam revealed a normal sphincter tone and no palpable masses. The scope was then introduced and retrofelexed. No internal hemorrhoids were identified. The scope was then advanced to the cecum without difficulty. The TI and appendiceal orifice were identified. The prep was adequate. The scope was then slowly retracted over 9 mins. he does have a small polyp at 60 cm. This is removed with a cold forcep. It is 5 mm and flat. All specimens are retrieved and no bleeding is noted. This is mucosa is pink and healthy. The re are no AVMs or diverticula are apparent.. The scope was removed and the patient was woken up and taken back to Same day surgery in stable condition. The patient tolerated the procedure well and there were no immediate complications. Follow up: The patient should follow up in 5-7 years, path pending, unless they develop changes in bowel habits or other new gastrointestinal complaints.
[2021-01-02 12:28] VITALS: BP 128/70; PULSE 66; RESP 18; TEMP 36.2; O2SAT 96
== END 2021-01-02 12:55 | disposition home or self-care (01) ==
PROVIDERS: PCP Nurse Practitioner; Visit Provider Surgery
PROC: 0DJD8ZZ Inspection of Lower Intestinal Tract, Via Natural or Artificial Opening Endoscopic (ICD-10-PCS; CPT 45378; principal; 2021-01-02 10:30)
DX: Z12.11 Encounter for screening for malignant neoplasm of colon (principal); D12.5 Benign neoplasm of sigmoid colon; I10 Essential (primary) hypertension; I25.10 Atherosclerotic heart disease of native coronary artery without angina pectoris
CPT/HCPCS: 45380; 88305; J2001

== ENCOUNTER 2022-05-24 03:25 | Outpatient (CLI) | payer OTHER, SELFPAY ==
[2022-05-24 09:41] LABS: CREATININE 0.9 mg/dL (0.70-1.30); Calculated LDL 72 mg/dL (<100); Cholesterol 129 mg/dL (<200); HDL Cholesterol 43 mg/dL (40-60); Potassium 4.3 mmol/L (3.5-5.1); Triglyceride 71 mg/dL (<150)
== END 2022-05-24 03:26 | disposition home or self-care (01) ==
LOC: LBO 03:25
PROVIDERS: PCP Nurse Practitioner; Visit Provider Internal Medicine Cardiovascular Disease
DX: I10 Essential (primary) hypertension (principal); I25.2 Old myocardial infarction; I25.10 Atherosclerotic heart disease of native coronary artery without angina pectoris
CPT/HCPCS: 36415; 80061; 82565; 84132

== ENCOUNTER 2022-05-24 09:27 | Outpatient (CLI) | payer OTHER, SELFPAY ==
--- NOTE | 2022-05-24 09:15 | RT.EKG_ITS ---
APPROVED REPORT Exam: Resting ECG Reason for Exam: CAD Patient Location: O HR:75 bpm ECG Measurements Heart Rate 75 AXIS CO 180 P 44 QRSd 92 QRS -4 QT 386 T 5 QTc 432 Conclusion Sinus rhythm...normal P axis, V-rate 50- 99 Possible Inferior infarct, old...Q >35mS, II III aVF Baseline wander in lead(s) II,III,aVF,V3
== END 2022-05-24 09:28 | disposition home or self-care (01) ==
LOC: DI.CARD 09:27
PROVIDERS: PCP Nurse Practitioner; Visit Provider Internal Medicine Cardiovascular Disease
DX: I25.2 Old myocardial infarction (principal); I25.10 Atherosclerotic heart disease of native coronary artery without angina pectoris
CPT/HCPCS: 93010

== ENCOUNTER → 2022-05-31 01:34 | Outpatient (CLI) | payer OTHER, SELFPAY ==
--- NOTE | 2022-05-31 09:00 | ETT_ITS ---
APPROVED REPORT Exam: Exercise Treadmill Patient Location: Out-Patient Room/Bed: Stress Nurse: Chandni Lua RN Ordering Provider:YOLANDE DE LEON, Contact Number: [phone] BMI: 36.25 Baseline Rhythm: Sinus Rhythm Indications: CAD, HTN Medical History Medical History: CAD, HTN, STEMI s/p PCI w/ ANA Cardiac Medications: Nitro SL, Metoprolol succinate, Lisinopril, Atorvastatin, Aspirin Allergies: No known drug allergies Cardiac Risk Factors: HTN, CVD Previous Cardiac Procedures: PCI Pretest Chest Pain Characteristics: No chest pain Exercise History: Physically active Physical Disabilities: None Lung Sounds: Clear to auscultation Heart Sounds: Regular Stress Test Details Test: Exercise stress testing was performed using a Christian protocol. Rest Stress HR Resting HR Supine: 75 bpm Max Heart Rate (APMHR): 169 bpm Resting HR Standin bpm Target HR (85% APMHR): 143 bpm Max HR Achieved: 162 bpm % of APMHR: 95 Recovery HR: 87 bpm HR response to stress: Normal HR response to stress Comment: Metoprolol succinate not held for test. BP Resting BP Supine: 156/88 mmHg Resting BP Standin/88 mmHg Max BP: 210/80 mmHg Recovery BP: 160/80 mmHg BP response to stress: Normal blood pressure response to stress. Comment: Hypertensive at baseline. ECG Resting ECG: Sinus Rhythm Ectopy: None Stress ECG: Sinus Tachycardia ST Change: No significant ST segment changes noted Arrhythmia: None Recovery ECG: Sinus Rhythm Recovery ST Change: No significant ST segment changes noted Recovery Arrhythmia: Couplets, 4 beat PVC run Clinical Reason for Termination: Dyspnea Stress Symptoms: Dyspnea Exercise duration: 10 min14 sec Highest Stage Reached: Stage 4: 4.2 mph at 16% grade. Exercise capacity: 12.2 METs Haney Treadmill Score: 9.3 Rate Pressure Product: [id number] Stress ECG Conclusion 1. Resting electrocardiogram was within normal limits 2. Patient exercised on the Christian protocol and completed a workload of 12.2 METS 3. Normal heart rate and blood pressure response to exercise. Patient achieved 95% of predicted hear t rate for age 4. There was no electrocardiographic evidence of myocardial ischemia 5. PVCs were seen Haney Treadmill Score is 9.3 which is Low risk. Stress Test Summary STAGE Time (mins) Speed (mph) Grade (%) HR BP SpO2 SYMPTOMS METS Supine 75 156/88 Standing 82 174/88 1 3 1.7 10 112 174/90 4.5 2 6 2.5 12 133 178/88 7 3 9 3.4 14 150 188/88 10 1 min recovery 136 210/80 96% 3 min recovery 93 208/82 6 min recovery 87 160/80
== END ==
PROVIDERS: PCP Nurse Practitioner; Visit Provider Internal Medicine Cardiovascular Disease
DX: I10 Essential (primary) hypertension (principal); I25.10 Atherosclerotic heart disease of native coronary artery without angina pectoris
CPT/HCPCS: 93017

== ENCOUNTER 2022-10-04 13:15 | Outpatient (REF) | payer OTHER, SELFPAY ==
[2022-10-04 15:30] LABS: Abs Immature Grans 0.01 10^3/uL (0.0-0.06); Absolute Basophil Count 0.02 10^3/uL (0.0-0.2); Absolute Eosinophil Count 0.08 10^3/uL (0.0-0.7); Absolute Lymphocyte Count 1.95 10^3/uL (1.2-3.4); Absolute Monocyte Count 0.51 10^3/uL (0.1-0.8); Absolute Neutrophil Count 4.12 10^3/uL (1.2-6.7); Basophils % 0.3; Eosinophils % 1.2; HCT 47.3 % (40.0-50.0); HGB 16.7 g/dL (13.5-17.5); Immature Grans % 0.1; Lymphocytes % 29.1; MCH 29.2 pg (27.0-33.0); MCHC 35.3 % (32.0-36.0); MCV 83 fL (80-95); MPV 10.3 fL (8.0-11.0); Monocytes % 7.6; Neutrophils % 61.7; Platelet Count 297 10^3/uL (130-400); RBC 5.72 10^6/uL (4.36-5.78); RDW 11.8 % (11.8-14.1); RDW-SD 35.4 fL; WBC 6.69 10^3/uL (4.4-10.8)
[2022-10-04 15:55] LABS: Anion Gap 9.4 mmol/L (3-11); BUN 19 mg/dL (7-18); CO2 29.6 mmol/L (21.0-32.0); Calcium 9.8 mg/dL (8.5-10.1); Chloride 95 mmol/L (98-107); Estimated GFR 91.12 (mL/min/1.73m2); Glucose 318 mg/dL (74-106); Sodium 134 mmol/L (136-145)
== END 2022-10-04 13:16 | disposition home or self-care (01) ==
LOC: LBN 13:15
PROVIDERS: PCP Nurse Practitioner Family; Visit Provider Nurse Practitioner Family
DX: I10 Essential (primary) hypertension (principal); R53.83 Other fatigue
CPT/HCPCS: 80048; 85025

== ENCOUNTER 2022-12-17 01:16 | Outpatient (CLI) | payer OTHER, SELFPAY ==
[2022-12-17 12:32] LABS: Anion Gap 6.2 mmol/L (3-11); BUN 15 mg/dL (7-18); CO2 28.8 mmol/L (21.0-32.0); CREATININE 0.9 mg/dL (0.70-1.30); Calcium 8.9 mg/dL (8.5-10.1); Chloride 104 mmol/L (98-107); Estimated GFR 102.76 (mL/min/1.73m2); Glucose 117 mg/dL (74-106); Sodium 139 mmol/L (136-145)
[2022-12-17 12:41] LABS: Hemoglobin A1C 6.5 % (<5.7)
== END 2022-12-17 01:17 | disposition home or self-care (01) ==
LOC: LOS 01:16
PROVIDERS: PCP Nurse Practitioner Family; Visit Provider Nurse Practitioner Family
DX: E11.9 Type 2 diabetes mellitus without complications (principal); I10 Essential (primary) hypertension; R53.83 Other fatigue
CPT/HCPCS: 36415; 80048; 83036

== ENCOUNTER 2023-04-04 21:28 | Outpatient (REF) | payer OTHER, SELFPAY ==
[2023-04-04 21:59] LABS: COMMENT (LAB VIEW ONLY) 149.69 mg/dL; Microalb ug/mg Crea 5.1 ug/mg Cr
== END 2023-04-04 21:29 | disposition home or self-care (01) ==
LOC: LBN 21:28
PROVIDERS: PCP Nurse Practitioner Family; Visit Provider Nurse Practitioner Family
DX: E11.9 Type 2 diabetes mellitus without complications (principal)
CPT/HCPCS: 82043; 82570

== ENCOUNTER 2023-09-12 05:20 | Outpatient (CLI) | payer OTHER, SELFPAY ==
[2023-09-12 13:28] LABS: ALT 43 U/L (16-63); AST 19 U/L (15-37); Albumin 3.8 g/dL (3.4-5.0); Alkaline Phosphatase 54 U/L (46-116); Anion Gap 7.3 mmol/L (3-11); BUN 21 mg/dL (7-18); Bilirubin, Total 0.4 mg/dL (0.2-1.0); CO2 27.7 mmol/L (21.0-32.0); Calcium 9.1 mg/dL (8.5-10.1); Calculated LDL 64 mg/dL (<100); Chloride 104 mmol/L (98-107); Cholesterol 124 mg/dL (<200); Estimated GFR 90.56 (mL/min/1.73m2); Glucose 121 mg/dL (74-106); HDL Cholesterol 41 mg/dL (40-60); Potassium 4.3 mmol/L (3.5-5.1); Sodium 139 mmol/L (136-145); Total Protein 7.1 g/dL (6.4-8.2); Triglyceride 96 mg/dL (<150)
== END 2023-09-12 05:21 | disposition home or self-care (01) ==
LOC: LOS 05:20
PROVIDERS: PCP Nurse Practitioner Family; Visit Provider Nurse Practitioner Family
DX: E11.9 Type 2 diabetes mellitus without complications (principal); I25.10 Atherosclerotic heart disease of native coronary artery without angina pectoris
CPT/HCPCS: 36415; 80053; 80061; 83036

== ENCOUNTER 2024-04-30 01:54 | Outpatient (CLI) | payer OTHER, SELFPAY ==
--- NOTE | 2024-04-30 06:15 | ETT_ITS ---
APPROVED REPORT Exam: Exercise Treadmill Patient Location: Out-Patient Room/Bed: Stress Nurse: Lexus Lyon RN Ordering Provider:YOLANDE MOISES, Contact Number: BMI: 33.46 Baseline Rhythm: Sinus Rhythm Indications: CAD Medical History Medical History: HTN, diabetes, CAD, STEMI, increased BMI Cardiac Medications: aspirin, atorvastatin, lisinopril, metformin, metoprolol succinate, nitroglyceri n Allergies: No known drug allergies Cardiac Risk Factors: diabetes, HTN, CVD Previous Cardiac Procedures: heart artery stent distal RCA + mid LAD Pretest Chest Pain Characteristics: No chest pain Exercise History: Physically active Physical Disabilities: none Lung Sounds: Clear to auscultation Heart Sounds: Regular Stress Test Details Test: Exercise stress testing was performed using a Christian protocol. Rest Stress HR Resting HR Supine: 90 bpm Max Heart Rate (APMHR): 167 bpm Resting HR Standin bpm Target HR (85% APMHR): 142 bpm Max HR Achieved: 146 bpm % of APMHR: 87 Recovery HR: 90 bpm HR response to stress: Normal HR response to stress BP Resting BP Supine: 140/88 mmHg Resting BP Standin/96 mmHg Max BP: 210/88 mmHg Recovery BP: 144/88 mmHg BP response to stress: Normal blood pressure response to stress. ECG Resting ECG: Sinus Rhythm Ectopy: None Stress ECG: Sinus Tachycardia ST Change: No significant ST segment changes noted Arrhythmia: None Recovery ECG: Sinus Rhythm Recovery ST Change: No significant ST segment changes noted Recovery Arrhythmia: None Clinical Reason for Termination: Target HR Achieved Stress Symptoms: Mild-mod. SOB Exercise duration: 06 min42 sec Highest Stage Reached: Stage 2: 2.5 mph at 12% grade. Exercise capacity: 8.13 METs Angina Score: None Haney Treadmill Score: 6.7 Rate Pressure Product: [id number] Stress ECG Conclusion 1. Resting electrocardiogram was normal 2. Patient exercised on the Christian protocol and completed a workload of 8.13 METS 3. Normal heart rate and blood pressure response to exercise. The patient achieved 87% predicted hea rt rate for age 4. There was no electrocardiographic evidence of myocardial ischemia 5. There were no significant dysrhythmias Haney Treadmill Score is 6.7 which is Low risk. Stress Test Summary STAGE Time (mins) Speed (mph) Grade (%) HR BP SpO2 SYMPTOMS METS Supine 90 140/88 Standing 86 162/96 98 1 3 1.7 10 124 158/92 97 4.5 2 6 2.5 12 140 164/90 97 mild SOB 7 3 9 3.4 14 146 98 mod. SOB 10 1 min recovery 120 210/88 98 mod. SOB 3 min recovery 91 154/90 98 resolved SOB 6 min recovery 90 144/88
== END 2024-04-30 02:14 ==
LOC: DI 01:54
PROVIDERS: PCP Nurse Practitioner Family; Visit Provider Internal Medicine Cardiovascular Disease
DX: I25.10 Atherosclerotic heart disease of native coronary artery without angina pectoris (principal)
CPT/HCPCS: 93017

== ENCOUNTER 2024-08-24 08:46 | Outpatient (CLI) | payer OTHER, SELFPAY ==
[2024-08-24 12:25] LABS: ALT 35 U/L (16-63); AST 20 U/L (15-37); Albumin 3.9 g/dL (3.4-5.0); Alkaline Phosphatase 61 U/L (46-116); Anion Gap 6.3 mmol/L (3-11); BUN 22 mg/dL (7-18); Bilirubin, Total 0.89 mg/dL (0.2-1.0); CO2 31.7 mmol/L (21.0-32.0); CREATININE 0.9 mg/dL (0.70-1.30); Calcium 9.1 mg/dL (8.5-10.1); Calculated LDL 62 mg/dL (<100); Chloride 103 mmol/L (98-107); Cholesterol 133 mg/dL (<200); Estimated GFR 102.12 (mL/min/1.73m2); Glucose 160 mg/dL (74-106); HDL Cholesterol 42 mg/dL (40-60); Potassium 4.2 mmol/L (3.5-5.1); Sodium 141 mmol/L (136-145); Total Protein 7.3 g/dL (6.4-8.2); Triglyceride 145 mg/dL (<150)
== END 2024-08-24 08:47 | disposition home or self-care (01) ==
LOC: LOS 08:46
PROVIDERS: PCP Nurse Practitioner Family; Visit Provider Nurse Practitioner Family
DX: I25.10 Atherosclerotic heart disease of native coronary artery without angina pectoris (principal); E11.9 Type 2 diabetes mellitus without complications; I10 Essential (primary) hypertension
CPT/HCPCS: 36415; 80053; 80061

== ENCOUNTER 2025-05-29 08:24 | Outpatient (CLI) | payer OTHER, SELFPAY ==
[2025-05-29 14:27] LABS: Hemoglobin A1C 6.5 % (<5.7)
[2025-05-29 14:39] LABS: HCT 44.8 % (40.0-50.0); HGB 15.0 g/dL (13.5-17.5); MCH 29.0 pg (27.0-33.0); MCHC 33.5 % (32.0-36.0); MCV 87 fL (80-95); MPV 9.7 fL (8.0-11.0); Platelet Count 234 10^3/uL (130-400); RBC 5.17 10^6/uL (4.36-5.78); RDW 12.1 % (11.8-14.1); RDW-SD 38.7 fL; WBC 4.72 10^3/uL (4.4-10.8)
[2025-05-29 14:49] LABS: ALT 40 U/L (16-63); AST 18 U/L (15-37); Albumin 3.9 g/dL (3.4-5.0); Alkaline Phosphatase 54 U/L (46-116); Anion Gap 8.7 mmol/L (3-11); BUN 20 mg/dL (7-18); Bilirubin, Total 0.6 mg/dL (0.2-1.0); CO2 27.3 mmol/L (21.0-32.0); Calcium 9.4 mg/dL (8.5-10.1); Calculated LDL 75 mg/dL (<100); Chloride 104 mmol/L (98-107); Cholesterol 129 mg/dL (<200); Estimated GFR 101.49 (mL/min/1.73m2); Glucose 137 mg/dL (74-106); HDL Cholesterol 38 mg/dL (>or=40); Potassium 4.5 mmol/L (3.5-5.1); Sodium 140 mmol/L (136-145); TSH (W/Ref FT4) 3.37 uIU/mL (0.36-3.74); Total Protein 6.9 g/dL (6.4-8.2); Triglyceride 84 mg/dL (<150); Vitamin B12 221 pg/mL (193-986)
== END 2025-05-29 08:25 | disposition home or self-care (01) ==
LOC: LOS 08:25
PROVIDERS: PCP Nurse Practitioner Family; Referring Provider Nurse Practitioner Family; Visit Provider Nurse Practitioner Family
DX: I25.10 Atherosclerotic heart disease of native coronary artery without angina pectoris (principal); E11.9 Type 2 diabetes mellitus without complications; R53.83 Other fatigue
CPT/HCPCS: 36415; 80053; 80061; 85027; 82607; 83036; 84443

== ENCOUNTER 2025-05-30 09:31 | Outpatient (CLI) | payer OTHER, SELFPAY ==
--- NOTE | 2025-05-30 09:30 | RT.EKG_ITS ---
APPROVED REPORT Exam: Resting ECG Reason for Exam: evaluate cardiac status Patient Location: O HR:73 bpm ECG Measurements Heart Rate 73 AXIS ND 184 P 50 QRSd 92 QRS -8 QT 387 T 33 QTc 427 Conclusion Sinus rhythm...normal P axis, V-rate 50- 99 Normal Electrocardiogram
== END 2025-05-30 09:32 | disposition home or self-care (01) ==
LOC: DI.CARD 09:32
PROVIDERS: PCP Nurse Practitioner Family; Visit Provider Internal Medicine Cardiovascular Disease
DX: I10 Essential (primary) hypertension (principal); I25.10 Atherosclerotic heart disease of native coronary artery without angina pectoris; I25.2 Old myocardial infarction
CPT/HCPCS: 93010